=== PATIENT | female | born 1985 | race American Indian/Alaskan Native ===

== ENCOUNTER 2017-04-18 20:08 | Inpatient (IN) | payer OTHER ==
[2017-04-18] MEDS ORDERED: LACTATED RINGERS 500 ML IV ONE (21:05)
[2017-04-18] MEDS ORDERED: MILK OF MAGNESIA PO PRN (21:46)
[2017-04-18] MEDS ORDERED: AMBIEN PO PRN (21:46)
[2017-04-18] MEDS ORDERED: DEEP SEA NS PRN (21:46)
[2017-04-18] MEDS ORDERED: ZOFRAN IV PRN (21:46)
[2017-04-18] MEDS ORDERED: COLACE PO PRN (21:46)
[2017-04-18] MEDS ORDERED: MYLICON PO PRN (21:46)
[2017-04-18] MEDS ORDERED: CALCIUM GLUCONATE IV ONE (22:04)
[2017-04-18] MEDS ORDERED: MAGNESIUM SULFATE 4GM/100ML 4 GM/100 ML BAG IV ONE (22:04)
--- NOTE | 2017-04-18 22:08 | History and Physical Report ---
Past History - Obstetrical History : 4 Medications and Allergies Allergies Allergy/AdvReac Type Severity Reaction Status Date / Time No Known Allergies Allergy Verified 04/18/17 21:05 Active Meds: Active Medications Acetaminophen (Tylenol) 650 mg PO Q4H PRN PRN Reason: Pain MILD(1-3)/Fever >100.5/LAWRENCE Betamethasone Acet/Betameth SodPhos (Celestone Soluspan) 12 mg IM Q24HR [facility] Stop: 04/19/17 10:01 Calcium Gluconate (Calcium Gluconate) 1,000 mg IV ONCE ONE Stop: 04/18/17 22:05 Docusate Sodium (Colace) 100 mg PO Q12H PRN PRN Reason: Constipation Hydralazine HCl (Apresoline) 5 mg IV Q30MIN PRN PRN Reason: Hypertension Lactated Ringer's (Lactated Ringers) 1,000 mls @ 125 mls/hr IV DIRECT BR[facility] Lactated Ringer's (Lactated Ringers) 1,000 mls @ 125 mls/hr IV DIRECT [facility] Magnesium Sulfate (Magnesium Sulfate 40gm/1000ml) 40 gm in 1,000 mls @ 25 mls/ hr IV DIRECT [facility] Magnesium Sulfate (Magnesium Sulfate 4gm/100ml) 4 gm in 100 mls @ 300 mls/hr IV ONCE ONE Stop: 04/18/17 22:23 Magnesium Hydroxide (Milk Of Magnesia) 30 ml PO QHS PRN PRN Reason: Laxative Effect Multivitamins/Iron/Calcium ( Vitamin) 1 each PO QDAY [facility] Ondansetron HCl (Zofran) 4 mg IV Q6H PRN PRN Reason: Nausea And Vomiting Simethicone (Mylicon) 80 mg PO Q6H PRN PRN Reason: Gas pain Sodium Chloride (Deep Sea) 2 spray NS Q4H PRN PRN Reason: Congestion Zolpidem Tartrate (Ambien) 10 mg PO ONCE PRN PRN Reason: Sleep Results All other labs normal.
[2017-04-18 22:45] LABS: Basophils # (Auto) 0.1 K/mm3 (0.0-0.1); Basophils % (Auto) 1.7 % (0.0-1.8); Eosinophils % (Auto) 0.5 % (0.0-4.3); Hematocrit 34.2 % (30.3-42.9); Hemoglobin 11.1 gm/dl (10.1-14.3); Lymphocytes # (Auto) 1.4 K/mm3 (1.2-5.4); Lymphocytes % (Auto) 21.4 % (13.4-35.0); Mean Corpuscular HGB Conc 32 % (30-34); Mean Corpuscular Volume 78 fl (79-97); Monocytes # (Auto) 0.4 K/mm3 (0.0-0.8); Monocytes % (Auto) 6.9 % (0.0-7.3); Platelet Count 184 K/mm3 (140-440); Red Blood Count 4.41 M/mm3 (3.65-5.03); Red Cell Distribution Width 17.7 % (13.2-15.2)
[2017-04-18 22:48] LABS: Mean Corpuscular Hemoglobin 25 pg (28-32)
[2017-04-18 22:49] LABS: Bacteria,Urine 1+ /HPF (Negative); Bilirubin,Urine NEG (Negative); Blood,Urine NEG (Negative); Color,Urine Yellow (Yellow); Mucus,Urine FEW /HPF
[2017-04-18] MEDS ORDERED: MAGNESIUM SULFATE 40GM/1000ML 40 GM/1,000 ML BAG IV SCH (23:00)
[2017-04-18] MEDS ORDERED: MAGNESIUM SULFATE 40 GM in NACL 0.9% 1000 ML 1,000 ML IV SCH (23:00)
[2017-04-18] MEDS ORDERED: LACTATED RINGERS 1,000 ML IV SCH (23:00)
[2017-04-18 23:02] LABS: Alanine Aminotransferase 11 units/L (7-56)
[2017-04-18 23:03] LABS: Amphetamine Screen,Urine PRESUMPTIVE NEGATIVE; Benzodiazepines Screen,Urine PRESUMPTIVE NEGATIVE; Cannabinoid Screen,Urine PRESUMPTIVE NEGATIVE; Cocaine Screen,Urine PRESUMPTIVE NEGATIVE; Methadone Screen,Urine PRESUMPTIVE NEGATIVE; Opiate Screen,Urine PRESUMPTIVE NEGATIVE
[2017-04-18 23:11] LABS: Hepatitis C Virus Antibody Non-Reactive (NonReactive)
[2017-04-18 23:15] LABS: Rubella IgG Antibody Immune (Immune)
[2017-04-18] MEDS: APRESOLINE IV PRN (23:20)
[2017-04-18] MEDS: CELESTONE SOLUSPAN IM SCH (23:23)
--- NOTE | 2017-04-19 00:13 | Ultrasound Report ---
FINAL REPORT EXAM: US OB BPP WO NON-STRESS HISTORY: elevated bp, no care, TECHNIQUE: A biophysical profile was performed. FINDINGS: For breathing movements, a score of 2 out of 2 was obtained. For movements, a score of 2 out of 2 was obtained. For posture in tone, a score of 2 out of 2 was obtained. For qualitative amniotic fluid volume, a score of 0 out of 2 was obtained. The heart is 155 BPM. IMPRESSION: Biophysical profile score of 6 out of 8 as described. heart is 155 BPM.
--- NOTE | 2017-04-19 00:18 | Ultrasound Report ---
FINAL REPORT EXAM: US OB > = 14 WEEKS FETUS HISTORY: 33 wks, no care TECHNIQUE: Routine OB sonogram was obtained including Doppler interrogation of the fetus. FINDINGS: There is a single viable intra in cephalic presentation with an estimated gestational age of 34 weeks 1 day based on sonographic criteria. The heart is 155 BPM. The placenta is grade 1 and is anterior in position. The AKSHAT is 2.8 cm which is decreased. There are no gross anomalies involving the cisterna magna, stomach, kidneys, bladder, diaphragm or heart. The spine, abdominal cord insertion, ventricles and four-chamber reveal heart could not be obtained. The estimated weight is 2059 grams. IMPRESSION: Single viable intrauterine in cephalic presentation, 34 weeks 1 day. Oligohydramnios.
[2017-04-19] MEDS: APRESOLINE IV PRN ×4 (00:42→18:09)
[2017-04-19] MEDS: TYLENOL PO PRN ×4 (02:35→23:11)
[2017-04-19] MEDS ORDERED: PERCOCET 5/325 PO ONE (02:50)
[2017-04-19 03:51] LABS: Uric Acid 5.8 mg/dL (3.5-7.6)
[2017-04-19 08:15] LABS: BUN/Creatinine Ratio 12; Blood Urea Nitrogen 6 mg/dL (7-17); Calcium 8.6 mg/dL (8.4-10.2); Hemolysis Index 10
[2017-04-19] MEDS: NORMODYNE PO SCH ×2 (08:41→22:15)
--- NOTE | 2017-04-19 08:55 | History and Physical Report ---
History of Present Illness Date of examination: 04/19/17 Date of admission: 04/18/17 23:10 Chief complaint: elevated blood pressure History of present illness: Pt is a 31 year old -[place] female G2103 ARLENE 06/06/17 at 33w1d presents to triage with complaint of vaginal spotting but was found to have blood pressures 150-170/90-110s and was admitted to the hospital for magnesium sulfate and 24 hr urine collection. She reports good movement, and denies leakage of fluid. She has had no care this and did not know she was until 2 months ago. She denies any h/o chronic hypertension Pt has infraumbilical pain every time her baby moves that lasts for 10-20 seconds then resolves Past History Past Medical History: GERD, hematologic disorders (Sickle Cell Trait ) Past Surgical History: no surgical history Family/Genetic History: diabetes Social history: no significant social history - Obstetrical History Expected Date of Delivery: 06/06/17 Actual Gestation: 33 Week(s) 1 Day(s) : 4 Para: 3 Hx # Term Pregnancies: 2 Number of Pregnancies: 1 Spontaneous Abortions: 0 Induced : 0 Number of Living Children: 3 Medications and Allergies Allergies Allergy/AdvReac Type Severity Reaction Status Date / Time No Known Allergies Allergy Verified 04/18/17 21:05 Active Meds: Active Medications Acetaminophen (Tylenol) 650 mg PO Q4H PRN PRN Reason: Pain MILD(1-3)/Fever >100.5/LAWRENCE Last Admin: 04/19/17 02:35 Dose: 650 mg Betamethasone Acet/Betameth SodPhos (Celestone Soluspan) 12 mg IM Q24H BRISA Stop: 04/19/17 22:01 Last Admin: 04/18/17 23:23 Dose: 12 mg Docusate Sodium (Colace) 100 mg PO Q12H PRN PRN Reason: Constipation Famotidine (Pepcid) 20 mg IV BID BRISA Hydralazine HCl (Apresoline) 5 mg IV Q30MIN PRN PRN Reason: Hypertension Last Admin: 04/19/17 07:41 Dose: 5 mg Lactated Ringer's (Lactated Ringers) 1,000 mls @ 125 mls/hr IV DIRECT [facility] Magnesium Sulfate 40 gm/ (Sodium Chloride) 1,080 mls @ 27 mls/hr IV DIRECT [facility] Last Admin: 04/19/17 00:35 Dose: 1 gm/hr, 27 mls/hr Labetalol HCl (Normodyne) 200 mg PO BID [facility] Last Admin: 04/19/17 08:41 Dose: 200 mg Magnesium Hydroxide (Milk Of Magnesia) 30 ml PO QHS PRN PRN Reason: Laxative Effect Last Admin: 04/19/17 01:13 Dose: 30 ml Multivitamins/Iron/Calcium ( Vitamin) 1 each PO QDAY [facility] Ondansetron HCl (Zofran) 4 mg IV Q6H PRN PRN Reason: Nausea And Vomiting Last Admin: 04/19/17 06:06 Dose: 4 mg Simethicone (Mylicon) 80 mg PO Q6H PRN PRN Reason: Gas pain Sodium Chloride (Deep Sea) 2 spray NS Q4H PRN PRN Reason: Congestion Zolpidem Tartrate (Ambien) 10 mg PO ONCE PRN PRN Reason: Sleep Review of Systems All systems: negative - Vital Signs Vital signs: Vital Signs Temp Pulse BP 98.3 F 65 171/109 04/18/17 21:03 04/18/17 21:03 04/18/17 21:03 Temp Pulse Resp BP Pulse Ox 97.7 F 100 H 16 143/90 04/19/17 07:43 04/19/17 08:41 04/19/17 07:43 04/19/17 08:41 - Physical Exam Breasts: Positive: deferred Cardiovascular: Regular rate Lungs: Positive: Clear to auscultation Abdomen: Positive: soft (gravid ) Uterus: Positive: enlarged (gravid ) Extremities: Positive: normal (SCDs functioning ) - Obstetrical FHR: auscultation normal Uterine Contraction Monitor Mode: External Results Result Diagrams: 04/18/17 21:10 04/19/17 07:28 Abnormal lab results 04/18/17 04/18/17 04/19/17 Range/Units 21:10 21:10 07:28 MCV 78 L (79-97) fl MCH 25 L (28-32) pg RDW 17.7 H (13.2-15.2) % Sodium (137-145) mmol/L Carbon Dioxide (22-30) mmol/L BUN (7-17) mg/dL Creatinine 0.6 L (0.7-1.2) mg/dL Glucose (65-100) mg/dL Magnesium 3.60 H (1.7-2.3) mg/dL Lactate Dehydrogenase 323 H (91-180) units/L 04/19/17 Range/Units 07:28 MCV (79-97) fl MCH (28-32) pg RDW (13.2-15.2) % Sodium 135 L (137-145) mmol/L Carbon Dioxide 20 L (22-30) mmol/L BUN 6 L (7-17) mg/dL Creatinine 0.5 L (0.7-1.2) mg/dL Glucose 153 H (65-100) mg/dL Magnesium (1.7-2.3) mg/dL Lactate Dehydrogenase (91-180) units/L All other labs normal. Assessment and Plan A: IUP at 33w1d PIH No care GERD P: Admit to antepartum service Begin 24 hr urine collection Antihypertensives as indicated Betamethasone course Complete ultrasound completed on admission MFM consult Closely monitor maternal and status.
[2017-04-19] MEDS: PEPCID IV SCH ×2 (09:22→23:08)
[2017-04-19] MEDS: PRENATAL VITAMIN PO SCH (09:23)
--- NOTE | 2017-04-19 14:11 | Consultation ---
History of Present Illness Consult date: 04/19/17 Requesting physician: SANAM LAIRD History of present illness: HPI 31 y/0 ARLENE 06/06/17 (by "us done in [facility] about 2 months ago") EGA 33 0/7 weeks Present with Lower abd pain - No Care Had ?? mucous plug and small amount of spotting BP's noted to be elevated 170's/110 received Hydralazine and now BP stable Receiving Labetalol 200 BID Mild LAWRENCE's ( after she was started on Mg ) No Scotoma or RUQ Pain Denies H/O CHTN OB History 2008 Vag Term 2010 Vag Term 2012 Vag Del ?? 6# ("baby stayed one week in hospital") No med, surg, C/d/D , NKA , No STDN NO Care Abd soft gravid no RUQ Pain Ext NT no edema , DTR 1-2/4 no clonus EFM Categ I - 150's US EFW at 2059 grams 36% - BPP 6/8 (Minus 2 for fluid at 2.8 cm) Past History Past Medical History: GERD, hematologic disorders (Sickle Cell Trait ) Past Surgical History: no surgical history Family/Genetic History: diabetes - Obstetrical History : 4 Medications and Allergies Allergies Allergy/AdvReac Type Severity Reaction Status Date / Time No Known Allergies Allergy Verified 04/18/17 21:05 Active Meds: Active Medications Acetaminophen (Tylenol) 650 mg PO Q4H PRN PRN Reason: Pain MILD(1-3)/Fever >100.5/LAWRENCE Last Admin: 04/19/17 09:23 Dose: 650 mg Betamethasone Acet/Betameth SodPhos (Celestone Soluspan) 12 mg IM Q24H [facility]ISA Stop: 04/19/17 22:01 Last Admin: 04/18/17 23:23 Dose: 12 mg Docusate Sodium (Colace) 100 mg PO Q12H PRN PRN Reason: Constipation Famotidine (Pepcid) 20 mg IV BID BR[facility] Last Admin: 04/19/17 09:22 Dose: 20 mg Hydralazine HCl (Apresoline) 5 mg IV Q30MIN PRN PRN Reason: Hypertension Last Admin: 04/19/17 07:41 Dose: 5 mg Lactated Ringer's (Lactated Ringers) 1,000 mls @ 125 mls/hr IV DIRECT [facility] Magnesium Sulfate 40 gm/ (Sodium Chloride) 1,080 mls @ 27 mls/hr IV DIRECT [facility] Last Admin: 04/19/17 00:35 Dose: 1 gm/hr, 27 mls/hr Labetalol HCl (Normodyne) 200 mg PO BID [facility] Last Admin: 04/19/17 08:41 Dose: 200 mg Magnesium Hydroxide (Milk Of Magnesia) 30 ml PO QHS PRN PRN Reason: Laxative Effect Last Admin: 04/19/17 01:13 Dose: 30 ml Multivitamins/Iron/Calcium ( Vitamin) 1 each PO QDAY [facility] Last Admin: 04/19/17 09:23 Dose: 1 each Ondansetron HCl (Zofran) 4 mg IV Q6H PRN PRN Reason: Nausea And Vomiting Last Admin: 04/19/17 06:06 Dose: 4 mg Simethicone (Mylicon) 80 mg PO Q6H PRN PRN Reason: Gas pain Last Admin: 04/19/17 09:29 Dose: 80 mg Sodium Chloride (Deep Sea) 2 spray NS Q4H PRN PRN Reason: Congestion Zolpidem Tartrate (Ambien) 10 mg PO ONCE PRN PRN Reason: Sleep - Vital Signs Vital signs: Vital Signs Temp Pulse BP 98.3 F 65 171/109 04/18/17 21:03 04/18/17 21:03 04/18/17 21:03 Temp Pulse Resp BP Pulse Ox 97.9 F 100 H 16 143/90 04/19/17 12:04 04/19/17 08:41 04/19/17 12:04 04/19/17 08:41 Results Result Diagrams: 04/18/17 21:10 04/19/17 07:28 Abnormal lab results 04/18/17 04/18/17 04/19/17 Range/Units 21:10 21:10 07:28 MCV 78 L (79-97) fl MCH 25 L (28-32) pg RDW 17.7 H (13.2-15.2) % Sodium (137-145) mmol/L Carbon Dioxide (22-30) mmol/L BUN (7-17) mg/dL Creatinine 0.6 L (0.7-1.2) mg/dL Glucose (65-100) mg/dL Magnesium 3.60 H (1.7-2.3) mg/dL Lactate Dehydrogenase 323 H (91-180) units/L 04/19/17 Range/Units 07:28 MCV (79-97) fl MCH (28-32) pg RDW (13.2-15.2) % Sodium 135 L (137-145) mmol/L Carbon Dioxide 20 L (22-30) mmol/L BUN 6 L (7-17) mg/dL Creatinine 0.5 L (0.7-1.2) mg/dL Glucose 153 H (65-100) mg/dL Magnesium (1.7-2.3) mg/dL Lactate Dehydrogenase (91-180) units/L All other labs normal. Assessment and Plan 1. Jeffers IUP at 33 0/7 weeks 2. Gestational HTN - R/O Preeclampsia 3. No Care 4. Oligohydramnios Recommendations: 1. Steroids for FLM 2. NICU consult 3. Continue Labetalol 200 BID 4. 24 Hour Urine Pending 5. Delivery for S/S of Severe Preeclampsia or compromise 7. Try to have patient sign release for US report done in [place] 8. IV Hydralazine for Sys BP's > 160 or diastolic > 110 9. PIH labs twice per week while in hospital 10. Hydration and repeat BPP in am and obtain cord dopplers (BPP twice per week while in hospital and growth q 2 weeks) 11. EFM 12. Continue in patient management due to Oligo and Gest HTN
[2017-04-19] MEDS: CELESTONE SOLUSPAN IM SCH (23:13)
[2017-04-19] MEDS: LACTATED RINGERS 1,000 ML IV SCH (23:32)
[2017-04-20] MEDS: TYLENOL PO PRN (04:31)
[2017-04-20] MEDS: APRESOLINE IV PRN (04:45)
[2017-04-20] MEDS ORDERED: PERCOCET 5/325 PO ONE (05:51)
[2017-04-20] MEDS ORDERED: PITOCin/NS 20 UNIT/1000ML DRIP 20,000 MILLIUNITS/1,000 ML BAG IV ONE ×2 (08:35→10:19)
[2017-04-20] MEDS ORDERED: SUBLIMAZE ONE (08:42)
[2017-04-20] MEDS: PEPCID IV SCH ×2 (09:10→21:51)
[2017-04-20] MEDS: PRENATAL VITAMIN PO SCH (09:10)
[2017-04-20] MEDS: NORMODYNE PO SCH ×2 (09:11→21:52)
--- NOTE | 2017-04-20 09:24 | Event Note ---
Date: 04/20/17 Late Entry. Called by charge nurse secondary to patient having new onset abdominal pain. Cervix checked and noted to be completely dilated. On-call provider en route. Delivery imminent.
--- NOTE | 2017-04-20 09:24 | Procedure Note ---
OB Delivery Note - Delivery Date of Delivery: 04/20/17 Surgeon: SANAM LAIRD Estimated blood loss: 500cc - Vaginal Delivery presentation: vertex Delivery position: OA Intrapartum events: abruption (suspected ), preeclampsia, precipitous labor- < 3hr Delivery induction: none Delivery monitor: external FHT, external uterine Route of delivery: Delivery placenta: spontaneous Delivery cord: 3 umbilical vessels Episiotomy: none Delivery laceration: none Anesthesia: none Delivery comments: Pt progressed to complete dilation and rapidly delivered a viable female over intact perineum via under no anesthesia attended by crystallography teacher while MD on-call en route. Per crystallography teacher, a large clot preceded delivery of the fetus suspicious for abruption. Upon entry into the room, just delivered. Cord clamped and cut and handed to NICU staff in attendance. Cord blood collected. Placenta delivered spontaneously and sent to pathology. Vagina and perineum explored. No lacerations noted. EBL 500 mL. - Infant A at 1 minute: 8 at 5 minutes: 9 Infant Gender: Female (1964g @ 0832 am)
--- NOTE | 2017-04-20 10:25 | Consultation ---
History of Present Illness Consult date: 04/20/17 Requesting physician: SANAM LAIRD Reason for consult: gestational hypertension History of present illness: CHRISTIAN PATEL: This is a 31 year old P2102 ARLENE 06/06/17 EGA 33 0/7 weeks She presented with low abdominal pain and no care. BP's noted to be elevated 170's/110 received Hydralazine and now BP stable Receiving Labetalol 200 BID Mild LAWRENCE's ( after she was started on Mg ) No Scotoma or RUQ Pain Denies H/O CHTN OB History 2008 Vag Term 2010 Vag Term 2012 Vag Del Past History Past Medical History: GERD, hematologic disorders (Sickle Cell Trait ) Past Surgical History: no surgical history Family/Genetic History: diabetes - Obstetrical History : 4 Medications and Allergies Allergies Allergy/AdvReac Type Severity Reaction Status Date / Time No Known Allergies Allergy Verified 04/18/17 21:05 Active Meds: Active Medications Acetaminophen (Tylenol) 650 mg PO Q4H PRN PRN Reason: Pain MILD(1-3)/Fever >100.5/LAWRENCE Last Admin: 04/20/17 04:31 Dose: 650 mg Docusate Sodium (Colace) 100 mg PO Q12H PRN PRN Reason: Constipation Famotidine (Pepcid) 20 mg IV BID [facility] Last Admin: 04/20/17 09:10 Dose: 20 mg Hydralazine HCl (Apresoline) 5 mg IV Q30MIN PRN PRN Reason: Hypertension Last Admin: 04/20/17 04:45 Dose: 5 mg Lactated Ringer's (Lactated Ringers) 1,000 mls @ 125 mls/hr IV DIRECT [facility] Last Admin: 04/19/17 23:32 Dose: 125 mls/hr Magnesium Sulfate 40 gm/ (Sodium Chloride) 1,080 mls @ 27 mls/hr IV DIRECT [facility] Last Admin: 04/19/17 00:35 Dose: 1 gm/hr, 27 mls/hr Labetalol HCl (Normodyne) 200 mg PO BID [facility] Last Admin: 04/20/17 09:11 Dose: 200 mg Magnesium Hydroxide (Milk Of Magnesia) 30 ml PO QHS PRN PRN Reason: Laxative Effect Last Admin: 04/19/17 01:13 Dose: 30 ml Multivitamins/Iron/Calcium ( Vitamin) 1 each PO QDAY [facility] Last Admin: 04/20/17 09:10 Dose: 1 each Ondansetron HCl (Zofran) 4 mg IV Q6H PRN PRN Reason: Nausea And Vomiting Last Admin: 04/19/17 06:06 Dose: 4 mg Simethicone (Mylicon) 80 mg PO Q6H PRN PRN Reason: Gas pain Last Admin: 04/19/17 09:29 Dose: 80 mg Sodium Chloride (Deep Sea) 2 spray NS Q4H PRN PRN Reason: Congestion Zolpidem Tartrate (Ambien) 10 mg PO ONCE PRN PRN Reason: Sleep - Vital Signs Vital signs: Vital Signs Temp Pulse BP 98.3 F 65 171/109 04/18/17 21:03 04/18/17 21:03 04/18/17 21:03 Temp Pulse Resp BP Pulse Ox 97.2 F L 89 18 169/105 96 04/20/17 09:14 04/20/17 09:14 04/20/17 05:58 04/20/17 09:14 04/19/17 23:29 Results Result Diagrams: 04/18/17 21:10 04/19/17 07:28 All other labs normal. Assessment and Plan ASSESSMENT 1. Jeffers IUP at 33 0/7 weeks 2. Gestational HTN - R/O Preeclampsia Severe preeclampsia based blood pressure 3. No Care 4. Oligohydramnios RECOMMENDATIONS: Steroids for FLM NICU consult There is currently evidence to support a diagnosis of severe preeclampsia or HELLP Blood pressures during observation are consistent with SEVERE PREECLAMPSIA. I've indicated to the patient that there are a number of medical complications which would require early delivery as a general rule for any gestation. I've indicated that unexplained vaginal bleeding, spontaneous labor, - induced hypertension and other complications would require delivery before an elective delivery. I've also indicated the recommendations from the [employer] [employer] published in the ACOG committee opinion number 560 regarding early term delivery. As well as recent studies from the Journal Obstetrics and Gynecology published in February [address] Díaz et al indicate that for chronic hypertension with signs of severe preelcampsia should be delivered after 34 weeks of gestation. Based on the fact that this patient has preeclampsia and new onset neurological symptoms as well as elevated systolic blood pressure we would recommend DELIVERY of this rather than continued expectant management. REFERENCE: Medically indicated late- and early-term deliveries. Committee Opinion No. 560. [employer]. Obstet Gynecol 2013;121:02605. Thank you for allowing us to participate in the care of this patient. We look forward to the opportunity to assist in her continued management. If you have any questions, we may be reached [phone]
[2017-04-20] MEDS ORDERED: MAGNESIUM SULFATE 40GM/1000ML 40 GM/1,000 ML BAG IV SCH ×2 (13:00)
[2017-04-20] MEDS ORDERED: PHENERGAN PO PRN (13:14)
[2017-04-20] MEDS ORDERED: TUCKS PAD TP PRN (13:14)
[2017-04-20] MEDS ORDERED: ZOFRAN IV PRN (13:14)
[2017-04-20] MEDS ORDERED: BENADRYL PO PRN (13:14)
[2017-04-20] MEDS ORDERED: LANSINOH TP PRN ×2 (13:14)
[2017-04-20] MEDS ORDERED: MILK OF MAGNESIA PO PRN (13:14)
[2017-04-20] MEDS ORDERED: PHENERGAN PR PRN (13:14)
[2017-04-20] MEDS ORDERED: DULCOLAX PR PRN (13:14)
[2017-04-20] MEDS ORDERED: PERCOCET 5/325 PO PRN (13:14)
[2017-04-20] MEDS ORDERED: DERMOPLAST TP PRN (13:14)
[2017-04-20] MEDS ORDERED: TYLENOL PO PRN (13:14)
[2017-04-20] MEDS ORDERED: SODIUM CHLORIDE FLUSH SYRINGE 10 ML IV SCH (14:00)
[2017-04-20] MEDS ORDERED: PITOCin/NS 20 UNIT/1000ML DRIP 20 UNITS/1,000 ML BAG IV SCH (14:00)
[2017-04-20] MEDS: MOTRIN PO SCH ×2 (18:03→23:46)
[2017-04-20] MEDS: LACTATED RINGERS 1,000 ML IV SCH (19:48)
[2017-04-20] MEDS: FEOSOL PO SCH (21:52)
[2017-04-21] MEDS: LACTATED RINGERS 1,000 ML IV SCH (04:09)
[2017-04-21 05:32] LABS: Hematocrit 32.2 % (30.3-42.9); Hemoglobin 9.9 gm/dl (10.1-14.3)
[2017-04-21] MEDS ORDERED: BOOSTRIX IM ONE (06:00)
[2017-04-21] MEDS: MOTRIN PO SCH ×2 (07:17→13:02)
--- NOTE | 2017-04-21 08:24 | Progress Note ---
Assessment and Plan O: BP 140-150/90 Magnesium Discontinued PP H/H: 9.9/32.2 A: Day 1 and suspected abruption of 33 week baby Sever Preeclampsia P: Hypertensive meds continue care Subjective - Subjective Date of service: 04/21/17 Patient reports: appetite normal, voiding normally, pain well controlled, other (Denies Headache, blurred vision, scotoma, or epigastric pain) [place]: doing well, in NICU Objective - Vital Signs Latest vital signs: Vital Signs Temp Pulse Resp BP BP Pulse Ox 04/21/17 06:00 98 F 82 16 143/90 04/21/17 04:17 97.9 F 81 18 131/89 04/21/17 02:00 99 F 73 18 138/91 04/21/17 00:20 98 F 78 16 136/87 04/20/17 21:52 98.1 F 81 147/99 147/99 04/20/17 20:15 98.8 F 83 16 140/92 04/20/17 17:20 98.7 F 89 20 159/99 97 04/20/17 15:30 98.2 F 87 20 158/102 04/20/17 13:00 86 150/97 04/20/17 11:10 83 20 143/97 04/20/17 09:14 97.2 F L 89 169/105 04/20/17 09:11 98 H 171/104 Intake and Output 04/20/17 04/21/17 04/21/17 22:59 06:59 14:59 Intake Total 720 1180 Output Total 800 800 Balance -80 380 Intake: IV 1000 Lactated Ringers 1,000 ml 1000 @ 125 mls/hr IV DIRECT [facility] Rx#:[id number] Oral 360 Intake, Free Water 360 180 Output: Urine 800 800 Void 800 800 Other: Total, Intake Amount 360 Total, Output Amount 800 800 # Voids Void 2 - Exam Breasts: Present: deferred Abdomen: Present: normal appearance, soft. Absent: distention, tenderness Uterus: Present: normal, firm, fundal height above umbilicus. Absent: bogginess , tenderness Extremities: Present: normal, edema (trace) Deep Tendon Reflex Grade: Dull/Diminished +1 - Labs Labs: Abnormal lab results 04/20/17 04/20/17 04/21/17 Range/Units 13:49 19:13 00:55 Hgb (10.1-14.3) gm/dl Magnesium 4.40 H 4.50 H 4.60 H (1.7-2.3) mg/dL 04/21/17 Range/Units 04:56 Hgb 9.9 L (10.1-14.3) gm/dl Magnesium (1.7-2.3) mg/dL
[2017-04-21] MEDS: PRENATAL VITAMIN PO SCH (10:13)
[2017-04-21] MEDS: FEOSOL PO SCH ×2 (10:13→21:36)
[2017-04-21] MEDS: NORMODYNE PO SCH ×2 (10:14→21:43)
[2017-04-21] MEDS: PEPCID IV SCH (10:29)
[2017-04-21] MEDS ORDERED: M-M-R II VACCINE SUB-Q ONE (13:12)
[2017-04-22] MEDS: MOTRIN PO SCH ×4 (00:16→18:49)
[2017-04-22] MEDS: PEPCID IV SCH ×3 (00:35→21:27)
[2017-04-22] MEDS ORDERED: D5LR 1,000 ML IV ONE (09:51)
[2017-04-22] MEDS ORDERED: D5LR 1,000 ML IV SCH (10:00)
[2017-04-22] MEDS: PRENATAL VITAMIN PO SCH (11:00)
[2017-04-22] MEDS: FEOSOL PO SCH ×2 (11:00→21:30)
--- NOTE | 2017-04-22 11:58 | Progress Note ---
Assessment and Plan O: BP 140-150/90 Magnesium Discontinued PP H/H: 9.9/32.2 A: Day 2 and suspected abruption of 33 week baby Severe Preeclampsia P: Hypertensive meds ( labetolol) consider d/c home tonigh repeat BPs held labetolol for now had low BP in NIccu BP currently 140/90s Subjective - Subjective Date of service: 04/22/17 Principal diagnosis: PPD#2 s/p Mag Patient reports: appetite normal, voiding normally, pain well controlled, flatus , ambulating normally : in NICU Objective - Vital Signs Latest vital signs: Vital Signs Temp Pulse Resp BP BP BP Pulse Ox 04/22/17 08:27 98.4 F 70 18 149/99 04/22/17 03:16 98.4 F 74 18 138/82 04/22/17 00:06 99.2 F 18 L 18 127/84 04/21/17 21:43 75 132/81 04/21/17 20:40 98.5 F 75 16 132/91 04/21/17 15:55 98.0 F 73 20 150/88 99 Intake and Output 04/21/17 04/22/17 04/22/17 23:59 07:59 15:59 Intake Total 240 480 240 Balance 240 480 240 Intake: Oral 240 240 Intake, Free Water 480 Other: Total, Intake Amount 240 240 # Voids Void 1 2 - Exam Breasts: Present: normal Cardiovascular: Present: Regular rate, Normal S1 Lungs: Present: Clear to auscultation, Normal air movement Abdomen: Present: normal appearance, soft, normal bowel sounds. Absent: distention, tenderness, guarding Vulva: both: normal Uterus: Present: normal, firm, fundal height below umbilicus. Absent: bogginess , tenderness Extremities: Present: normal Deep Tendon Reflex Grade: Normal +2
[2017-04-22] MEDS: NORMODYNE PO SCH (16:30)
[2017-04-23] MEDS: MOTRIN PO SCH ×4 (00:16→18:19)
[2017-04-23] MEDS: NORMODYNE PO SCH ×2 (02:42→11:45)
[2017-04-23] MEDS: FEOSOL PO SCH ×2 (11:44→21:10)
[2017-04-23] MEDS: PRENATAL VITAMIN PO SCH (11:45)
--- NOTE | 2017-04-23 12:07 | Progress Note ---
Assessment and Plan O: BP 130/80s Magnesium Discontinued PP H/H: 9.9/32.2 A: Day 3 and suspected abruption of 33 week baby Severe Preeclampsia P: Hypertensive meds ( labetolol) BP becoming hypotensive on 400 mg will lower to 200 mg bid consider d/c home after appropriate med change Subjective - Subjective Date of service: 04/23/17 Principal diagnosis: PPD#2 s/p Mag Patient reports: appetite normal, voiding normally, pain well controlled, flatus , ambulating normally [place]: doing well Objective - Vital Signs Latest vital signs: Vital Signs Temp Pulse Resp BP BP BP Pulse Ox 04/23/17 07:54 98.4 F 76 18 124/76 97 04/23/17 04:30 98.6 F 71 16 114/76 04/23/17 02:42 81 138/87 138/87 04/23/17 00:00 98.6 F 71 16 131/86 04/22/17 16:30 91 H 146/90 04/22/17 16:20 98.6 F 91 H 18 146/90 Intake and Output 04/22/17 04/23/17 04/23/17 23:59 07:59 15:59 Intake Total 120 800 Balance 120 800 Intake: Oral 120 200 Intake, Free Water 600 Other: Total, Intake Amount 120 200 # Voids Void 1 1 - Exam Breasts: Present: normal Cardiovascular: Present: Regular rate, Normal S1 Lungs: Present: Clear to auscultation, Normal air movement Abdomen: Present: normal appearance, soft, normal bowel sounds. Absent: distention, tenderness, guarding Vulva: both: normal Uterus: Present: normal, firm, fundal height below umbilicus. Absent: bogginess , tenderness Extremities: Present: normal Deep Tendon Reflex Grade: Normal +2 Incision: Present: normal, dry, intact
[2017-04-23 21:11] VITALS: BP 136/85
[2017-04-23] MEDS ORDERED: NORMODYNE PO SCH (22:00)
== END 2017-04-23 21:20 | disposition home or self-care (01) | DRG 774 ==
LOC: TRG 20:08 → OBSVTOIN 23:10 → LD 23:10 → INTOOBSV 04-19 10:27 → OBSVTOIN 04-19 10:27 → OB 04-20 12:13
PROVIDERS: ADMIT Obstetrics & Gynecology; ATTEND Obstetrics & Gynecology
PROC: 10E0XZZ Delivery of Products of Conception, External Approach (ICD-10-PCS; principal; 2017-04-20)
PROC: 3E0234Z Introduction of Serum, Toxoid and Vaccine into Muscle, Percutaneous Approach (ICD-10-PCS; 2017-04-21)
DX: O14.14 Severe pre-eclampsia complicating childbirth (principal); O45.93 Premature separation of placenta, unspecified, third trimester; O41.03X0 Oligohydramnios, third trimester, not applicable or unspecified; Z3A.33 33 weeks gestation of pregnancy; Z37.0 Single live birth; O99.62 Diseases of the digestive system complicating childbirth; K92.89 Other specified diseases of the digestive system; K21.9 Gastro-esophageal reflux disease without esophagitis; O13.4 Gestational [pregnancy-induced] hypertension without significant proteinuria, complicating childbirth; O62.3 Precipitate labor; Z83.3 Family history of diabetes mellitus; Z23 Encounter for immunization
CPT/HCPCS: 36415; 76805; 76819; 80048; 80307; 81001; 82565; 83615; 83735; 84450; 84460; 84550; 85014; 85018; 85025; 85660; 86592; 86706; 86762; 86803; 86850; 86900; 86901; 87806; 88307; 99211; G0463; J0360; J0702; J2405; J2590; J3010; J3475; J7030; J7120; J7121